=== PATIENT | male | born 1980 | race Caucasian/White ===

== ENCOUNTER 2018-09-05 13:41 | Emergency (ER) | payer BC, MEDICAID ==
[~2018-09-05] VITALS: Ht 180.3 cm; Wt 81.2 kg
[2018-09-05 13:52] VITALS: Ht 180.3 cm; Wt 81.2 kg
[2018-09-05 14:35] VITALS: BP 133/63
== END 2018-09-05 14:35 | disposition home or self-care (01) ==
LOC: ED 13:41
DX: J02.9 Acute pharyngitis, unspecified (principal); Z90.89 Acquired absence of other organs